=== PATIENT | male | born 1965 | race Caucasian/White ===

== ENCOUNTER 2019-02-25 16:30 | Emergency (ER) | payer SELFPAY ==
[~2019-02-25] VITALS: Ht 175.3 cm; Wt 72.6 kg
[2019-02-25 16:38] VITALS: BP 141/111
--- NOTE | 2019-02-25 16:44 | NUR ---
PT AMB TO BED 6 WITH STEADY GAIT
[2019-02-25] MEDS ORDERED: NACL 0.9% 1,000 ML IV ONE (16:53)
[2019-02-25] MEDS ORDERED: ONDANSETRON 4 MG/2 ML VIAL IVP ONE (16:55)
[2019-02-25] MEDS ORDERED: FAMOTIDINE 20 MG/2 ML VIAL IVP ONE (16:55)
[2019-02-25] MEDS ORDERED: PANTOPRAZOLE 40 MG INJ VIAL IVP ONE (16:55)
[2019-02-25] MEDS ORDERED: PROMETHAZINE 25 MG/ML VIAL IM ONE (16:55)
--- NOTE | 2019-02-25 17:11 | NUR ---
PT SENT TO CT WITH TECH VIA W/C
[2019-02-25 17:15] LABS: BASOPHILS # (AUTO) 0.1 K/uL (0.00-0.22); EOSINOPHILS # (AUTO) 0.1 K/uL (0-0.4); HEMOGLOBIN 13.2 g/dL (12.0-18.0); LYMPHOCYTES % (AUTO) 47.7 % (20.5-51.1); MEAN CORPUSCULAR HEMOGLOBIN 31 pg (27-31); MEAN CORPUSCULAR HGB CONC 33 g/dL (33-37); MONOCYTES # (AUTO) 0.5 K/uL (0.8-1.0); MONOCYTES % (AUTO) 7.2 % (1.7-9.3); NEUTROPHILS # (AUTO) 2.7 K/uL (1.8-7.7); NEUTROPHILS % (AUTO) 43.1 % (42.2-75.2); PLATELET COUNT (AUTO) 75 K/uL (140-450); RED BLOOD CELL COUNT(AUTO) 4.26 MIL/uL (4.20-6.10); RED CELL DISTRIBUTION WIDTH 15.9 % (11.6-13.7); WHITE BLOOD COUNT (AUTO) 6.3 K/uL (4.8-10.8)
--- NOTE | 2019-02-25 17:15 | NUR ---
PT C/O VOMITING BLOOD SINCE THIS MORNING X 2 EPISODES. CP STARTING AFTER VOMITING. PATIENT STATES L HAND IS TINGLING. 5/10 SHARP CHEST PAIN. SMOKED WEED 2 WEEKS AGO, DENIES OTHER DRUG USE AT THIS TIME. DENIES DIARRHEA; SKIN IS PINK/WARM/DRY; AAOX4 WITH EVEN AND STEADY GAIT; PT DENIES ANY FEVER, SOB, OR COUGH AT THIS TIME; PATIENT STATES PAIN OF 5/10 AT THIS TIME; VSS; PATIENT POSITIONED FOR COMFORT; HOB ELEVATED; BEDRAILS UP X2; BED DOWN. ER MD MADE AWARE OF PT STATUS. MOTHER IS AT BEDSIDE.
[2019-02-25] MEDS: NACL 0.9% 1,000 ML IV SCH ×2 (17:32→19:31)
[2019-02-25 17:42] LABS: ANION GAP 14.6 (8-16); CHLORIDE 108 mmol/L (98-107); CREATININE 0.9 mg/dL (0.7-1.3); GFR ARICAN-AMERICAN 113 mL/min (>90); GLUCOSE 105 mg/dL (74-106); POTASSIUM 3.6 mmol/L (3.5-5.1); SODIUM SERUM 145 mmol/L (136-145); UREA NITROGEN, BLOOD 7 mg/dL (7-18)
[2019-02-25 17:46] LABS: ACETONE, SERUM NEGATIVE (NEGATIVE)
[2019-02-25 17:56] LABS: PROTHROMBIN TIME 12.3 secs (10.8-13.4)
[2019-02-25 17:57] LABS: ALBUMIN 3.1 g/dL (3.4-5.0); AMYLASE 99 U/L (25-115); ASPARTATE AMINOTRANSFERASE 119 U/L (15-37); GAMMA GLUTAMYL TRANSFERASE 501 U/L (7-51); LIPASE 337 U/L (73-393); MAGNESIUM 1.8 mg/dL (1.8-2.4)
[2019-02-25 18:08] LABS: APPEARANCE,URINE CLEAR (CLEAR); BILIRUBIN,URINE 1+ (NEGATIVE); BLOOD, URINE NEGATIVE (NEGATIVE); COLOR,URINE DARK YELLOW (YELLOW); LEUKOCYTE ESTERASE ,URINE NEGATIVE (NEGATIVE); NITRITE, URINE NEGATIVE (NEGATIVE); UGLUCOSE NEGATIVE (NEGATIVE)
[2019-02-25 18:08] LABS: URIC ACID 5.9 mg/dL (2.6-7.2)
[2019-02-25 18:14] LABS: BARBITURATE, URINE NEG. ng/ml (NEG <=200); BENZODIAZEPINE, URINE NEG. ng/mL (NEG <=200); CANNABINOID, URINE NEG. ng/mL (NEG <=50); COCAINE, URINE NEG. ng/mL (NEG <=300); OPIATE, URINE NEG. ng/mL (NEG <=2000); PHENCYCLIDINE SCREEN,URINE NEG. ng/mL (NEG <=25)
[2019-02-25] MEDS ORDERED: MULTIVITAMIN-12 10 ML, THIAMINE 100 MG, MAGNESIUM SULFATE 50% 2,000 MG, FOLIC ACID 5 MG... IV ONE ×5 (18:25)
--- NOTE | 2019-02-25 19:19 | NUR ---
RECEIVED REPORT FROM DIANA MICHELLE. TRANSFER OF CARE AT THIS TIME.
[2019-02-25 20:28] VITALS: BP 126/77
--- NOTE | 2019-02-25 20:28 | NUR ---
PT AMBULATORY WITH STEADY GAIT, AOX4, DENIES ANY PAIN. PT CALLED FAMILY TO PICK HIM UP
--- NOTE | 2019-02-25 20:29 | NUR ---
Patient discharged with v/s stable. Written and verbal after care instructions given and explained. Patient alert, oriented and verbalized understanding of instructions. Ambulatory with steady gait. All questions addressed prior to discharge. ID band removed. Patient advised to follow up with PMD. Rx of VISTARIL given. Patient educated on indication of medication including possible reaction and side effects. Opportunity to ask questions provided and answered.
== END 2019-02-25 20:28 | disposition home or self-care (01) ==
LOC: MED 16:30
DX: F10.129 Alcohol abuse with intoxication, unspecified (principal); K70.10 Alcoholic hepatitis without ascites; F10.10 Alcohol abuse, uncomplicated; B18.2 Chronic viral hepatitis C; F14.10 Cocaine abuse, uncomplicated; F11.10 Opioid abuse, uncomplicated; F12.10 Cannabis abuse, uncomplicated; Y90.8 Blood alcohol level of 240 mg/100 ml or more
CPT/HCPCS: 36415; 74176; 80053; 80305; 81003; 82009; 82140; 82150; 82977; 83605; 83690; 83735; 84550; 85025; 85610; 85730; 86886; 86900; 86901; 93005; 96361; 96365; 96372; 96375; 99284; A9153; C9113; G0482; J2405; J2550; J3411; J3475; J3490; J7030